=== PATIENT | male | born 1960 | race Caucasian/White ===

== ENCOUNTER 2017-08-09 05:19 | Emergency (ER) | payer SELFPAY ==
[~2017-08-09] VITALS: Ht 170.2 cm; Wt 79.0 kg
[2017-08-09 07:08] VITALS: BP 155/74
== END 2017-08-09 07:08 | disposition home or self-care (01) ==
LOC: ER 06:02
DX: F41.9 Anxiety disorder, unspecified (principal); E11.9 Type 2 diabetes mellitus without complications; Z87.891 Personal history of nicotine dependence
CPT/HCPCS: 82962; 99283; Z7610